=== PATIENT | male | born 2000 | race African-American/Black ===

== ENCOUNTER 2025-01-10 08:51 | Emergency (ER) | payer SELFPAY ==
[2025-01-10 08:56] VITALS: BP 144/105
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
[2025-01-10 09:35] LABS: Hematocrit 46.6 % (39.0-52.0); Hemoglobin 15.4 g/dL (13.0-18.0); Mean Corp Hgb Conc. 33.0 g/dL (33.0-37.0); Mean Corpuscular Volume 88.3 fL (80.0-94.0); Nucleated Red Blood Cells % 0 % (-); Platelet Count 193 10^3/uL (130-400); Red Cell Dist. Width 12.3 % (11.5-14.5)
[2025-01-10] MEDS: TORADOL 15 MG IV (09:35)
[2025-01-10 10:05] LABS: ALT (SGPT) 48 U/L (0-50); AST (SGOT) 33 U/L (17-59); Albumin 4.3 g/dl (3.5-5.0); Alkaline Phosphatase 81 U/L (38-126); Blood Urea Nitrogen 7 mg/dl (9-20); Calcium 9.6 mg/dl (8.4-10.2); Carbon Dioxide 29 mmol/L (22-30); Chloride 106 mmol/L (98-107); Glucose 107 mg/dl (70-99); Potassium 4.2 mmol/L (3.5-5.1); Sodium 140 mmol/L (135-145); Total Protein 7.3 g/dl (6.3-8.2); eGFR > 60.00
[2025-01-10 10:10] LABS: Depakane 10.6 ug/ml (50.0-120.0); Troponin I < 0.012 ng/ml
[2025-01-10 10:46] VITALS: BP 144/91
== END 2025-01-10 10:46 ==
LOC: EMR 08:51
PROVIDERS: EMERGENCY PHYSICIAN Emergency Medicine
DX: R07.9 Chest pain, unspecified (principal); F84.0 Autistic disorder; I10 Essential (primary) hypertension; G40.509 Epileptic seizures related to external causes, not intractable, without status epilepticus; Z65.3 Problems related to other legal circumstances
CPT/HCPCS: 99284; 96374; 80053; 80156; 80164; 84484; 85025; 93005